=== PATIENT | male | born 1955 | race Caucasian/White ===

== ENCOUNTER → 2023-06-15 08:27 | Outpatient (REF) | payer OTHER, SELFPAY | LOC: HWRAD 08:27 | PROVIDERS: ATTENDING PHYSICIAN Family Medicine | DX: Z87.891 Personal history of nicotine dependence (principal) | CPT/HCPCS: 71271 ==

== ENCOUNTER → 2023-10-03 07:01 | Outpatient (REF) | payer OTHER, SELFPAY | LOC: HWRAD 07:01 | PROVIDERS: ATTENDING PHYSICIAN Physician Assistant; FAMILY PHYSICIAN Family Medicine | DX: M17.0 Bilateral primary osteoarthritis of knee (principal) | CPT/HCPCS: 73560; 73565 ==

== ENCOUNTER → 2024-06-18 08:18 | Outpatient (REF) | payer OTHER, SELFPAY | LOC: HWRAD 08:18 | PROVIDERS: ATTENDING PHYSICIAN Family Medicine | DX: Z87.891 Personal history of nicotine dependence (principal) | CPT/HCPCS: 71271 ==